=== PATIENT | male | born 1990 | race African-American/Black ===

== ENCOUNTER 2020-06-08 09:48 | Emergency (ER) | payer MEDICAID ==
[~2020-06-08] VITALS: Ht 185.4 cm; Wt 84.0 kg
[2020-06-08 09:51] VITALS: BP 144/90
== END 2020-06-08 11:32 | disposition home or self-care (01) ==
LOC: ER 09:48
DX: A64 Unspecified sexually transmitted disease (principal); F17.200 Nicotine dependence, unspecified, uncomplicated; F12.10 Cannabis abuse, uncomplicated
CPT/HCPCS: 87491; 87591; 99281